=== PATIENT | male | born 2000 | race Caucasian/White ===

== ENCOUNTER 2023-08-09 21:45 | Emergency (ER) | payer BC, SELFPAY ==
[2023-08-09 21:47] VITALS: BP 120/80
[2023-08-09 21:57] LABS: % Basophils 0.3 % (0-2); % Eosinophils 0.9 % (0-6); % Immature Granulocytes 0.4 % (0-0.5); % Lymphocytes 12.1 % (20.5-51.1); % Monocytes 6.9 % (1.7-9.3); % Neutrophils 79.4 % (42.2-75.2); Absolute Eosinophils 0.1 10^3/uL (0-0.7); Absolute Immature Granulocytes 0.1 10^3/uL (0-0.05); Absolute Lymphocytes 1.9 10^3/uL (1.2-3.4); Absolute Monocytes 1.1 10^3/uL (0.1-0.6); Absolute Neutrophils 12.2 10^3/uL (1.4-6.5); Hematocrit 43.7 % (39.0-52.0); Hemoglobin 15.4 g/dL (13.0-18.0); Mean Corp Hgb Conc. 35.2 g/dL (33.0-37.0); Mean Corpuscular Hgb 29.8 pg (27.0-31.0); Mean Corpuscular Volume 84.7 fL (80.0-94.0); Mean Platelet Volume 9.7 fL (7.4-10.4); Nucleated Red Blood Cells % 0 % (-); Platelet Count 323 10^3/uL (130-400); Red Blood Cell Count 5.16 10^6/uL (4.70-6.10); Red Cell Dist. Width 12.1 % (11.5-14.5); White Blood Cell Count 15.4 10^3/uL (4.8-10.8)
[2023-08-09 22:20] LABS: ALT (SGPT) 25 U/L (0-50); AST (SGOT) 25 U/L (17-59); Albumin 4.9 g/dl (3.5-5.0); Alkaline Phosphatase 110 U/L (38-126); Blood Urea Nitrogen 15 mg/dl (9-20); Calcium 10.3 mg/dl (8.4-10.2); Carbon Dioxide 25 mmol/L (22-30); Chloride 98 mmol/L (98-107); Glucose 91 mg/dl (70-99); Potassium 4.1 mmol/L (3.5-5.1); Sodium 137 mmol/L (135-145); Total Bilirubin 0.8 mg/dl (0.2-1.3); Total Protein 7.9 g/dl (6.3-8.2); eGFR > 60.00
[2023-08-10 00:34] VITALS: BP 124/72
[2023-08-10 03:35] VITALS: BP 120/66
--- NOTE | 2023-08-10 04:20 | ED.GENMED ---
History of Present Illness
General
Chief Complaint: Abdominal Pain
Source: patient and family
Exam Limitations: none
Time Seen by Provider: 08/10/23 04:10
Nursing documentation reviewed up to this point in time: agreed with
Travel History
Have you had any contact with someone who has COVID-19?: No
Do you have any symptoms of coronavirus? Fever > 100 degrees, chills, cough, shortness of breath, sore throat, loss of taste or smell, muscle aches, or headache?: No
History of Present Illness
History of Present Illness:
Patient presents to ED secondary to 4-day history of abdominal pain associated with nausea, vomiting, and diarrhea. Denies fever or chills. Denies trauma. Denies recent change in medications or diet. Denies sick contact. Denies recent travel.
Abdominal pain described as sharp, diffuse, without any alleviating or exacerbating factors. Patient was able to eat pretzels today without any difficulty, i.e. vomiting. No diarrhea episodes over the past 24 hours.
Review of Systems
Review of Systems
Allergies reviewed?: Yes
All Other Systems: ROS reviewed and negative except as documented in HPI and ROS
Constitutional: Reports no symptoms; Denies fever
EENT: Reports no symptoms
ABD/GI: Reports abdominal pain, nausea, vomiting and diarrhea
Musculoskeletal: Reports no symptoms
Skin: Reports no symptoms
Neurological: Reports no symptoms
Phy Exam
Physical Exam
Physical Exam:
Physical Exam
General: no apparent distress, not acutely ill. afebrile
Head: nc/at. eomi
Neck: supple. no meningeal signs.
Heart: s1/s2 regular rate and rhythm, no murmur. equal radial pulses.
Lungs: no acute respiratory distress. clear bilaterally
Abdomen: normal bowel sounds. not tender. no distention
Neuro: alert and oriented. no focal neurological deficits
Skin: no rash
Psychiatric: well kept. interactive and cooperative
Extremities: no edema. no calf tenderness.
Course
Orders/Labs/Results
Orders:
Orders
08/09/23 21:52
CMP [Comprehensive Metabolic Panel] Urgent
Complete Blood Count/With Diff Urgent
08/10/23 00:30
CT Abd/Pel (IV only)-[facility] only Urgent
Reason For Exam: RLQ pain
Abnormal Lab Results
08/09/23
21:52
WBC 15.4 H 10^3/uL
(4.8-10.8)
Abs Immat Gran (auto) 0.1 H 10^3/uL
(0-0.05)
Absolute Neuts (auto) 12.2 H 10^3/uL
(1.4-6.5)
Absolute Monos (auto) 1.1 H 10^3/uL
(0.1-0.6)
Neutrophils % 79.4 H %
(42.2-75.2)
Lymphocytes % 12.1 L %
(20.5-51.1)
Calcium 10.3 H mg/dl
(8.4-10.2)
08/09/23 21:52
08/09/23 21:52
Vital Signs
Initial and Last Documented VS:
Initial Vital Signs
Temp Pulse Resp BP Pulse Ox
98.8 F 72 18 120/80 97
08/09/23 21:47 08/09/23 21:47 08/09/23 21:47 08/09/23 21:47 08/09/23 21:47
Last Documented Vital Signs
Temp Pulse Resp BP Pulse Ox
98.8 F 70 18 118/60 100
08/09/23 21:47 08/10/23 04:23 08/10/23 04:23 08/10/23 04:23 08/10/23 04:23
MDM/Problems Addressed
MDM/Problems Addressed:
History and exam, along with CT scan consistent with likely nonspecific colitis versus gastritis versus viral illness. Mild leukocytosis noted, which may be reactive. Otherwise patient is afebrile, hemodynamically stable, and without significant
distress at time of discharge. Abdominal exam at time of discharge, is soft and nontender. Patient will follow-up with his PCP or GI physician, as there is family history of Crohn's disease. Advised to return to ED with worsening symptoms, i.e.
fever/worsening pain/vomiting.
*Critical Care Note
Total Time (30-74mins, 75-104mins- exclusive of procedures): Not Applicable
ED Attending Note
-
Portions of this chart may have been created with voice recognition software.� Occasional wrong word or��sound alike� substitutions may have occurred due to the inherent limitations of voice recognition software.
Discharge Plan
Departure
Patient Disposition: Home (Routine Discharge)
Date of Disposition: 08/10/23
Time of Disposition: 04:21
Patient with high blood pressure during this ER visit?: Yes
Condition: Good
Discharge Problem:
Viral enteritis
Instructions: [place] Diet, Viral Gastroenteritis, Adult (DC)
Referrals:
Jaspal Day DO [Family Provider] -
Stand Alone Forms: Back to School
Activity Restrictions/Additional Instructions:
As discussed, please follow-up with your primary care physician and/or GI physician for further evaluation and treatment. Please return to ED with worsening symptoms, i.e. fever/worsening pain/vomiting.
Interventions
Interventions:
*Risk Screen - Suicide Last Done: 08/09/23 21:47
*General Assessment Last Done: 08/10/23 03:35
*Neglect/Abuse Screening Last Done: 08/09/23 21:47
ED- Fall Risk Assessment Last Done: 08/10/23 03:35
*ED COVID-19 Vaccine History Last Done: 08/10/23 03:35
*Nursing Disposition Last Done: 08/10/23 04:26
PO-Odcuee-Nvgaclhvku Assessment Last Done: 08/10/23 03:35
Discharge Date and Time
Discharge Date/Time: 08/10/23 04:27
Print Language: IVORIAN
[2023-08-10 04:23] VITALS: BP 118/60
== END 2023-08-10 04:27 | disposition home or self-care (01) ==
LOC: EMR 21:45
PROVIDERS: Emergency Medicine; EMERGENCY PHYSICIAN Emergency Medicine; FAMILY PHYSICIAN Family Medicine
DX: A08.4 Viral intestinal infection, unspecified (principal); R03.0 Elevated blood-pressure reading, without diagnosis of hypertension
CPT/HCPCS: 99285; 74177; 80053; 85025; Q9967